=== PATIENT | female | born 1950 | race Caucasian/White ===

== ENCOUNTER 2025-07-11 10:49 | Outpatient (RCR) | payer MEDICARE, SELFPAY ==
--- NOTE | 2025-08-03 09:26 | OPREHPOC ---
Outpatient Therapy Plan of Care This is a Multidisciplinary Plan of Care that may contain components documented by all disciplines (PT, OT, and ST.) PT Problem 1 PT Problem #1 Knowledge Deficit PT Goal 1 Goal / Goal Update independent and compliant with HEP Target Visit 3 PT Problem 2 PT Problem #2 Pain PT Goal 1 Goal / Goal Update patient to report no pain in the knee at rest for the last week Target Visit 6 PT Problem 3 PT Problem #3 Impaired Strength PT Goal 1 Goal / Goal Update improve L LE strength to 4+/5 or better overall Target Visit 6 PT Problem 4 PT Problem #4 Impaired Functional Mobility PT Goal 1 Goal / Goal Update patient to ambulate 6 minutes with normal gait mechanics for 1000ft or more LEFS to display 25% or less functional deficits patient to report no shooting pains in the L LE in the last week. Target Visit 6
--- NOTE | 2025-08-03 09:26 | PTOPEVAL1 ---
Assessment and note entered by JT File, PT Evaluation Information Assessment Status Evaluation ICD-10 Condition Codes (PT) Pain in left knee M25.562 Onset 09/25/24 Subjective Information patient reports she has felt better since having a recent injection to the L knee. she reports she was having shooting pains up the front of the L lower leg, and also some pains in the knee. she reports she is walking funny and would like to get rid of that. she reports the injection was a couple weeks ago, and did wonders for her. she reports she walks with a limp/waddle side to side and would like to get rid of that. she reports she does not feel much pain recently when walking, but feels it is a habit now that she walks with this limp. she reports back in September she had a fall and cracked something in her knee. she reports she is unsure which bone it was. Assessment PT Clinical Summary mrs. lloyd is a pleasant 74 yo woman who presents to skilled PT services for rehab of L knee pain. she displays deficits in strength, ambulation, and functional activity performance. continued skilled PT is indicated to address this objective/ functional deficits and return to her prior level functional activity performance/quality of life. Plan of Care Interventions Electrical Stimulation,Gait Training,Hot Pack/Cold Pack,Neuro Re-education,Patient/Caregiver Education,Therapeutic Activities,Therapeutic Exercise PT Services Indicated Yes Treatment Frequency and 2x weekly for 6 visits Duration These treatments will address the objective and functional deficits as defined above. The patient will be advanced safely and appropriately in order for the patient to progress towards his/her prior level of function. Additional exercises will be introduced and as well as a comprehensive home exercise program upon discharge, if needed, ?to ensure carryover of functional gains achieved in the clinic. This treatment plan has been reviewed and agreement upon by the patient.
--- NOTE | 2025-08-04 11:37 | OPREHPOC ---
Outpatient Therapy Plan of Care This is a Multidisciplinary Plan of Care that may contain components documented by all disciplines (PT, OT, and ST.) PT Problem 1 PT Problem #1 Knowledge Deficit PT Goal 1 Goal / Goal Update independent and compliant with HEP Target Visit 3 Progress Met PT Problem 2 PT Problem #2 Pain PT Goal 1 Goal / Goal Update patient to report no pain in the knee at rest for the last week Target Visit 6 Progress Met PT Problem 3 PT Problem #3 Impaired Strength PT Goal 1 Goal / Goal Update improve L LE strength to 4+/5 or better overall - met for all except hip flexion Target Visit 6 Progress Partially Met PT Problem 4 PT Problem #4 Impaired Functional Mobility PT Goal 1 Goal / Goal Update patient to ambulate 6 minutes with normal gait mechanics for 1000ft or more -met LEFS to display 25% or less functional deficits - met patient to report no shooting pains in the L LE in the last week. -met Target Visit 6 Progress Met
--- NOTE | 2025-08-04 11:37 | PTOPDC ---
Assessment and note entered by Rocio Villegas, PT Evaluation Information Assessment Status Discharge ICD-10 Condition Codes (PT) Pain in left knee M25.562 Onset 09/25/24 Subjective Information Pt reports her knee is feeling good and she has not had any pain. She feels like her walking has gotten a lot better and she feels like she walks more even and can walk faster than before. She has been independent with her HEP but would like some additional hip strengthening exercises. Reported Pain Level Pain Score 0: Self Report Pain Score 0: Self Report Assessment PT Clinical Summary Mrs. Young has attended 6 skilled PT visits addressing L knee pain. Since starting PT and receiving cortisone injections she reports complete reduction in her L knee pain and has made good progress in her LE strength and walking ability, and she has met or partially met all therapeutic goals addressing these deficits. She will be discharged from skilled PT this date with edu to continue HEP and new hip strengthening exercises added. Plan of Care PT Services Indicated No
== END 2025-08-04 20:00 | disposition home or self-care (01) ==
LOC: CHSPT 10:49
PROVIDERS: PCP Family Medicine
DX: M17.12 Unilateral primary osteoarthritis, left knee (principal)
CPT/HCPCS: 97110; 97161; 97530